=== PATIENT | female | born 1960 | race African-American/Black ===

== ENCOUNTER 2024-04-04 05:50 | Inpatient (IN) | payer OTHER ==
[~2024-04-04] VITALS: Ht 162.6 cm; Wt 90.7 kg
[2024-04-04] VITALS (16 sets, daily range): BP systolic 130–195; BP diastolic 83–183; PULSE 76–96; RESP 5–20; TEMP 36.3918–36.78072; O2SAT 37–98
[~2024-04-04 05:50] MED LIST: ALLO100T MT; AMLODIPINE; ASPI-1160 PO; CARV12.545 PO; CARV3.1242 PO; CETI10CA11 PO; CITA10TA88 MT; CITA20TA75 MT; COR12 PO; ESCI-7 PO; FAMO40TA7 MT; FAMO40TA7 PO; FERR325T6 MT; FURO-151 MT; FURO20TA4 PO; GABA-529 MT; HCTZ; HYDR-4009 MT; HYDR-4009 PO; HYDR200T35 MT; HYDR200T80 MT; HYDR25TA MT; HYDR50TA40 MT; IPRA3AMP9 HHN; LEVO250T74 MT; LORA-249 PO; LOSA100T33 MT; LOSA100T33 PO; NIFE90TA60 MT; NIFE90TA69 PO; ONDA4TAB50 MT; P20 MT; PRED10TA MT; PRED5TAB MT; PROM5SYR MT; PROT40 MT; TRAZ-251 MT
[2024-04-04 07:02] LABS: HEMATOCRIT. 27.2 % (36.0-48.0); HEMOGLOBIN. 8.7 g/dL (12.0-16.0); MEAN CORPUSCULAR HEMOGLOBIN 30.1 pg (28.0-32.0); MEAN PLATELET VOLUME 8.2 fl (7.4-10.4); PLATELET 205 x1000/uL (130-400); WHITE BLOOD COUNT 12.4 x1000/uL (4.5-11.0)
[2024-04-04 07:05] LABS: CHLORIDE 100 mEq/L (98-107); POTASSIUM 5.4 mEq/L (3.5-5.1); SODIUM 133 mEq/L (136-145)
[2024-04-04 07:06] LABS: CALCIUM 9.1 mg/dL (8.7-10.4); CARBON DIOXIDE 23 mEq/L (21-32); DIFFERENTIAL COMMENT 1
[2024-04-04 07:11] LABS: GLUCOSE 99 mg/dL (70-105); UREA NITROGEN BLOOD 59 mg/dL (9-23)
[2024-04-04] MEDS: ACETAMINOPHEN 325MG TABLET PO ONE (07:11)
[2024-04-04] MEDS: METHYLPREDNISOLONE SOD SUCC 125MG/2ML (ACT-O-VIAL) IV STA (07:11)
[2024-04-04 07:21] LABS: TROPONIN I HIGH SENSITIVITY 574 ng/L (3.0-34)
[2024-04-04 07:22] LABS: CREATININE 6.2 mg/dL (0.6-1.0)
[2024-04-04] MEDS: TETANUS, DIPHTHERIA, PERTUSSIS VAC/PF 0.5ML (>10YR OLD) IM ONE (07:23)
[2024-04-04] MEDS: ALBUTEROL (0.083%) 2.5MG/3ML NEB HHN SCH (07:24)
[2024-04-04] MEDS: IPRATROPIUM BROMIDE (0.02%) 0.5MG/2.5ML NEB HHN STA (07:24)
[2024-04-04] MEDS ORDERED: FUROSEMIDE 40MG/4ML VIAL IVP ONE (07:30)
[2024-04-04 08:43] LABS: TROPONIN I HIGH SENSITIVITY 543 ng/L (3.0-34)
[2024-04-04 12:27] LABS: PLATELET ESTIMATE NORMAL
[2024-04-04 12:28] LABS: ANISOCYTOSIS 2+
[2024-04-04] MEDS ORDERED: IPRATROPIUM/ALBUTEROL 0.5-3(2.5)MG/3ML NEB HHN PRN (13:00)
[2024-04-04] MEDS ORDERED: PIPERACILLIN/TAZOBACTAM 3.375 G in DEXTROSE 5% WATER 50 ML IV SCH (13:00)
[2024-04-04] MEDS ORDERED: ENOXAPARIN 40MG/0.4ML SYR SUBCUT SCH (13:00)
[2024-04-04] MEDS ORDERED: NALOXONE HCL 0.4MG/ML VIAL IV PRN (13:15)
[2024-04-04 13:38] LABS: HEPATITIS B SURFACE ANTIGEN NEGATIVE (Negative)
[2024-04-04] MEDS: METHYLPREDNISOLONE SOD SUCC 40MG/ML (ACT-O-VIAL) IV SCH (13:55)
[2024-04-04] MEDS: ENOXAPARIN 30MG/0.3ML SYR SUBCUT SCH (13:56)
[2024-04-04 13:58] LABS: HEPATITIS A AB IGM NEGATIVE (Negative)
[2024-04-04 13:59] LABS: HEPATITIS B CORE AB IGM NEGATIVE (Negative); HEPATITIS C AB NON REACTIVE (Neg) (Negative)
[2024-04-04] MEDS ORDERED: *PATIENT'S OWN MEDICATION STORAGE XX SCH (20:15)
[2024-04-04] MEDS: ATORVASTATIN CALCIUM 40MG TABLET PO SCH (22:08)
[2024-04-04] MEDS: EPOETIN ALFA 4000UNITS/ML VIAL SUBCUT SCH (22:09)
[2024-04-04] MEDS: HYDROCODONE/ACETAMINOPHEN 5/325MG TABLET PO PRN (22:09)
[2024-04-05] VITALS (11 sets, daily range): BP systolic 153–183; BP diastolic 83–128; PULSE 83–88; RESP 14–25; TEMP 36.114–36.72516; O2SAT 20–100
[2024-04-05] MEDS: AZTREONAM 2GM in DEXTROSE 5% WATER 100ML IV SCH (00:28)
[2024-04-05] MEDS: ONDANSETRON HCL 4MG/2ML INJ IV PRN (00:34)
[2024-04-05] MEDS: ASPIRIN 81MG TABLET PO SCH (10:00)
[2024-04-05] MEDS: ISOSORBIDE MONONITRATE 30MG TABLET SR 24HR PO SCH (14:15)
[2024-04-05 16:19] LABS: BG CARBOXYHEMOGLOBIN 0.8 % (0.5-1.5); BG DEOXYHEMOGLOBIN 31.4 % (0.0-5.0); BG FRACTION INSPIRED OXYGEN 21; BG HCO3 ACT 22.9 mmol/L (21.0-28.0); BG METHEMOGLOBIN 0.3 % (0.5-1.5); BG OXYGEN SATURATION 68.3 % (94.0-98.0); BG OXYHEMOGLOBIN 67.5 % (94.0-98.0); BG PCO2 50.3 mmHg (32.0-45.0); BG PH 7.276 (7.350-7.450); BG SAMPLE SITE LEFT RADIAL; BG TOTAL HEMOGLOBIN 10.2 g/dL (12.0-16.0); BG VENT MODE ROOM AIR
[2024-04-05] MEDS: DIATR MEGLU/DIATRIZOATE SOLN 30ML PO SCH (18:28)
[2024-04-05] MEDS: ACETAMINOPHEN 325MG TABLET PO PRN (21:16)
[2024-04-05] MEDS: AMLODIPINE 5MG TABLET PO SCH (21:17)
[2024-04-06] VITALS (19 sets, daily range): BP systolic 143–194; BP diastolic 78–135; PULSE 73–93; RESP 11–22; TEMP 36.16956–37.00296; O2SAT 96–99
[2024-04-06] MEDS ORDERED: DIPHENHYDRAMINE 25MG CAPSULE PO PRN (06:45)
[2024-04-06] MEDS: HYDRALAZINE HCL 25MG TABLET PO SCH (15:11)
[2024-04-06] MEDS: HYDRALAZINE 20MG/ML VIAL IV PRN (19:08)
[2024-04-06] MEDS: HYDROCODONE/ACETAMINOPHEN 10/325MG TABLET PO PRN (22:28)
[2024-04-06] MEDS: EPOETIN ALFA-EPBX 4,000 UNIT/ML VIAL SUBCUT SCH (23:09)
[2024-04-07] VITALS (12 sets, daily range): BP systolic 153–181; BP diastolic 72–99; PULSE 78–92; RESP 13–28; TEMP 36.44736–37.16964; O2SAT 93–100
[2024-04-07] MEDS: ISOSORBIDE MONONITRATE 60MG TABLET SR 24HR PO SCH (08:15)
[2024-04-07 13:03] LABS: HEMATOCRIT 28.1 % (36.0-48.0); HEMOGLOBIN 9.1 g/dL (12.0-16.0); MEAN CORPUSCULAR HEMOGLOBIN 30.9 pg (28.0-32.0); MEAN CORPUSCULAR HGB CONC 32.5 g/dL (31.0-37.0); MEAN CORPUSCULAR VOLUME 95.3 fL (81.0-99.0); PLATELET 201 x1000/uL (130-400); RED BLOOD CELL COUNT 2.95 mill/uL (4.2-5.4); RED CELL DISTRIBUTION WIDTH 19.5 % (11.6-14.6); WHITE BLOOD COUNT 10.6 x1000/uL (4.5-11.0)
[2024-04-07 13:11] LABS: POTASSIUM 5.1 mEq/L (3.5-5.1)
[2024-04-07 13:12] LABS: CALCIUM 8.6 mg/dL (8.7-10.4)
[2024-04-07 13:18] LABS: CREATININE 5.5 mg/dL (0.6-1.0)
[2024-04-07 13:38] LABS: BG BASE EXCESS -4.1 mmol/L (-2.0-3.0); BG CARBOXYHEMOGLOBIN 0.4 % (0.5-1.5); BG DEOXYHEMOGLOBIN 5.5 % (0.0-5.0); BG FRACTION INSPIRED OXYGEN 28; BG HCO3 ACT 22.4 mmol/L (21.0-28.0); BG METHEMOGLOBIN 0.3 % (0.5-1.5); BG OXYGEN SATURATION 94.5 % (94.0-98.0); BG OXYHEMOGLOBIN 93.8 % (94.0-98.0); BG PCO2 47.5 mmHg (32.0-45.0); BG PH 7.291 (7.350-7.450); BG PO2 80.2 mmHg (83.0-108.0); BG SAMPLE SITE RIGHT BRACHIAL; BG TOTAL HEMOGLOBIN 9.4 g/dL (12.0-16.0); BG VENT MODE NASAL CANNULA
[2024-04-08] VITALS (16 sets, daily range): BP systolic 163–197; BP diastolic 78–109; PULSE 84–97; RESP 13–24; TEMP 36.114–37.05852; O2SAT 84–100
[2024-04-08] MEDS ORDERED: HYDRALAZINE 20MG/ML VIAL IV PRN (12:45)
[2024-04-08] MEDS ORDERED: HYDRALAZINE HCL 50MG TABLET PO SCH (14:00)
== END 2024-04-08 14:00 | DRG 140 ==
LOC: ER 05:50 → 5EST 07:31 → MERGE 07:31
PROVIDERS: ADMIT Internal Medicine; ATTEND Internal Medicine
PROC: 5A1D70Z Performance of Urinary Filtration, Intermittent, Less than 6 Hours Per Day (ICD-10-PCS; principal; 2024-04-04)
PROC: 5A1D70Z Performance of Urinary Filtration, Intermittent, Less than 6 Hours Per Day (ICD-10-PCS; 2024-04-06)
PROC: 5A1D70Z Performance of Urinary Filtration, Intermittent, Less than 6 Hours Per Day (ICD-10-PCS; 2024-04-08)
DX: J44.1 Chronic obstructive pulmonary disease with (acute) exacerbation (principal); I50.33 Acute on chronic diastolic (congestive) heart failure; I21.A1 Myocardial infarction type 2; N18.6 End stage renal disease; M32.9 Systemic lupus erythematosus, unspecified; Z99.81 Dependence on supplemental oxygen; E87.1 Hypo-osmolality and hyponatremia; I13.2 Hypertensive heart and chronic kidney disease with heart failure and with stage 5 chronic kidney disease, or end stage renal disease; I16.0 Hypertensive urgency; Z20.822 Contact with and (suspected) exposure to COVID-19; S22.31XA Fracture of one rib, right side, initial encounter for closed fracture; X58.XXXA Exposure to other specified factors, initial encounter; M25.512 Pain in left shoulder; I25.10 Atherosclerotic heart disease of native coronary artery without angina pectoris; E87.5 Hyperkalemia; D64.9 Anemia, unspecified; Z88.1 Allergy status to other antibiotic agents; Z99.2 Dependence on renal dialysis; Z91.148 Patient's other noncompliance with medication regimen for other reason; V49.88XA Car occupant (driver) (passenger) injured in other specified transport accidents, initial encounter; Y93.89 Activity, other specified; Y92.89 Other specified places as the place of occurrence of the external cause; Y99.8 Other external cause status; Z91.158 Patient's noncompliance with renal dialysis for other reason; Z86.19 Personal history of other infectious and parasitic diseases
CPT/HCPCS: 36415; 36600; 71045; 71250; 73030; 74176; 80048; 82375; 82805; 82962; 84484; 85018; 85025; 85027; 86705; 86709; 87340; 87426; 90715; 90935; 93005; 94640; 99291; J0360; J0885; J1650; J2405; J2919; J2920; J3490; J7060; Q9963

== ENCOUNTER 2024-05-24 13:10 | Inpatient (IN) | payer MEDICAID, OTHER ==
[~2024-05-24] VITALS: Ht 165.1 cm; Wt 59.0 kg
[~2024-05-24 13:10] MED LIST changes: -AMLODIPINE; +APIX5TAB PO; +ATOR40TA70 PO; +CALC-37 PO; -CARV3.1242 PO; -CITA10TA88 MT; -CITA20TA75 MT; -COR12 PO; +DICL100G58 TP; +DOCU250C14 PO; -FAMO40TA7 MT; -FURO-151 MT; -GABA-529 MT; -HCTZ; -HYDR-4009 MT; -HYDR-4009 PO; -HYDR200T80 MT; -IPRA3AMP9 HHN; -LEVO250T74 MT; -LORA-249 PO; -LOSA100T33 MT; +MULT-11 PO; +NICO-681 TP; -NIFE90TA69 PO; -ONDA4TAB50 MT; -P20 MT; -PRED10TA MT; -PRED5TAB MT; -PROM5SYR MT; -PROT40 MT
[2024-05-24] MEDS: ASPIRIN 81MG TABLET PO ONE (14:39)
[2024-05-24 16:02] LABS: BASOPHILS % 0.3 % (0.0-2.0); EOSINOPHILS % 0.6 % (0.0-5.0); HEMATOCRIT. 32.8 % (36.0-48.0); HEMOGLOBIN. 10.8 g/dL (12.0-16.0); LYMPHOCYTES % 7.5 % (20.0-50.0); MEAN CORPUSCULAR HEMOGLOBIN 28.7 pg (28.0-32.0); MEAN CORPUSCULAR HGB CONC 32.8 g/dL (31.0-37.0); MEAN CORPUSCULAR VOLUME 87.3 fL (81.0-99.0); MEAN PLATELET VOLUME 8.2 fl (7.4-10.4); MONOCYTES % 4.3 % (2.0-8.0); NEUTROPHILS % 87.3 % (40.0-76.0); PLATELET 184 x1000/uL (130-400); RED BLOOD CELL COUNT 3.76 mill/uL (4.2-5.4); RED CELL DISTRIBUTION WIDTH 20.9 % (11.6-14.6); WHITE BLOOD COUNT 9.1 x1000/uL (4.5-11.0)
[2024-05-24 16:06] LABS: CHLORIDE 104 mEq/L (98-107); POTASSIUM 4.1 mEq/L (3.5-5.1); SODIUM 135 mEq/L (136-145)
[2024-05-24 16:07] LABS: CARBON DIOXIDE 22 mEq/L (21-32)
[2024-05-24 16:08] LABS: CALCIUM 8.7 mg/dL (8.7-10.4)
[2024-05-24 16:12] LABS: CREATININE 4.1 mg/dL (0.6-1.0); GLUCOSE 70 mg/dL (70-105); UREA NITROGEN BLOOD 29 mg/dL (9-23)
[2024-05-24 16:20] LABS: TROPONIN I HIGH SENSITIVITY 68 ng/L (3.0-34)
[2024-05-24 16:23] LABS: INR 1.1; PARTIAL THROMBOPLASTIN TIME 31.6 sec (23.4-31.0); PROTHROMBIN TIME 11.8 sec (9.6-11.0)
[2024-05-24] MEDS: HYDRALAZINE 20MG/ML VIAL IV NR (20:57)
[2024-05-25] VITALS (17 sets, daily range): BP systolic 117–209; BP diastolic 78–119; PULSE 1–102; RESP 16–19; TEMP 36.28068–36.6696; O2SAT 94–100
[2024-05-25] MEDS ORDERED: NON FORMULARY MED XX SCH (00:15)
[2024-05-25] MEDS: LOSARTAN 50 MG TABLET PO SCH (00:35)
[2024-05-25] MEDS: HYDROCODONE/ACETAMINOPHEN 5/325MG TABLET PO PRN (00:37)
[2024-05-25] MEDS: IPRATROPIUM/ALBUTEROL 0.5-3(2.5)MG/3ML NEB HHN PRN (00:49)
[2024-05-25] MEDS ORDERED: HYDRALAZINE 20MG/ML VIAL IV SCH (06:00)
[2024-05-25 06:34] LABS: POTASSIUM 4.2 mEq/L (3.5-5.1)
[2024-05-25 06:35] LABS: CALCIUM 8.8 mg/dL (8.7-10.4)
[2024-05-25 06:39] LABS: CREATININE 4.1 mg/dL (0.6-1.0)
[2024-05-25 06:44] LABS: BASOPHILS % 0.4 % (0.0-2.0); EOSINOPHILS % 0.9 % (0.0-5.0); HEMATOCRIT. 32.8 % (36.0-48.0); HEMOGLOBIN. 10.6 g/dL (12.0-16.0); LYMPHOCYTES % 7.4 % (20.0-50.0); MEAN CORPUSCULAR HEMOGLOBIN 28.2 pg (28.0-32.0); MEAN CORPUSCULAR HGB CONC 32.2 g/dL (31.0-37.0); MEAN CORPUSCULAR VOLUME 87.7 fL (81.0-99.0); MEAN PLATELET VOLUME 8.4 fl (7.4-10.4); MONOCYTES % 5.1 % (2.0-8.0); NEUTROPHILS % 86.2 % (40.0-76.0); PLATELET 178 x1000/uL (130-400); RED BLOOD CELL COUNT 3.75 mill/uL (4.2-5.4); RED CELL DISTRIBUTION WIDTH 21.4 % (11.6-14.6); WHITE BLOOD COUNT 9.9 x1000/uL (4.5-11.0)
[2024-05-25] MEDS: ALLOPURINOL 100 MG TABLET PO SCH (08:20)
[2024-05-25] MEDS: CITALOPRAM HYDROBROMIDE 10MG TABLET PO SCH (08:21)
[2024-05-25] MEDS: FERROUS SULFATE 325MG TABLET PO SCH (08:22)
[2024-05-25] MEDS: FUROSEMIDE 20MG TABLET PO SCH (08:22)
[2024-05-25] MEDS: APIXABAN 5 MG TABLET PO SCH (08:22)
[2024-05-25] MEDS: CARVEDILOL 12.5MG TABLET PO SCH (08:23)
[2024-05-25 12:52] LABS: HEPATITIS B SURFACE ANTIGEN NEGATIVE (Negative)
[2024-05-25 13:13] LABS: HEPATITIS A AB IGM NEGATIVE (Negative); HEPATITIS B CORE AB IGM NEGATIVE (Negative)
[2024-05-25 13:14] LABS: HEPATITIS C AB NON REACTIVE (Neg) (Negative)
[2024-05-25] MEDS ORDERED: IPRA3AMP9 NEB (17:29)
[2024-05-25] MEDS: CLONIDINE 0.1MG TABLET PO PRN (18:49)
[2024-05-25] MEDS: HYDRALAZINE 20MG/ML VIAL IV PRN (19:15)
[2024-05-25] MEDS: ATORVASTATIN CALCIUM 40MG TABLET PO SCH (21:13)
[2024-05-25] MEDS: FAMOTIDINE 20MG TABLET PO SCH (21:14)
[2024-05-25] MEDS: THROAT LOZENGES-BENZOCAINE/MENTH/CETYLPYRD CL LOZENGES MM PRN (22:17)
[2024-05-26] VITALS: BP 125/73; PULSE 79; RESP 17; TEMP 36.55848; O2SAT 99
[2024-05-26 04:00] VITALS: BP 166/85; PULSE 90; RESP 18; TEMP 36.50292; O2SAT 99
[2024-05-26 08:00] VITALS: BP 147/79; PULSE 80; RESP 18; TEMP 36.50292; O2SAT 99
[2024-05-26] MEDS: ONDANSETRON HCL 4MG/2ML INJ IV PRN (12:29)
[2024-05-26 16:00] VITALS: BP 114/70; PULSE 71; RESP 18; TEMP 36.50292; O2SAT 98
[2024-05-26 18:38] LABS: BASOPHILS % 0.4 % (0.0-2.0); EOSINOPHILS % 1.5 % (0.0-5.0); HEMATOCRIT. 30.5 % (36.0-48.0); HEMOGLOBIN. 10.2 g/dL (12.0-16.0); LYMPHOCYTES % 8.1 % (20.0-50.0); MEAN CORPUSCULAR HEMOGLOBIN 29.3 pg (28.0-32.0); MEAN CORPUSCULAR HGB CONC 33.3 g/dL (31.0-37.0); MEAN PLATELET VOLUME 8.3 fl (7.4-10.4); MONOCYTES % 5.9 % (2.0-8.0); NEUTROPHILS % 84.1 % (40.0-76.0); PLATELET 150 x1000/uL (130-400); RED BLOOD CELL COUNT 3.47 mill/uL (4.2-5.4); RED CELL DISTRIBUTION WIDTH 20.6 % (11.6-14.6); WHITE BLOOD COUNT 6.4 x1000/uL (4.5-11.0)
[2024-05-26 18:44] LABS: POTASSIUM 4.9 mEq/L (3.5-5.1)
[2024-05-26 18:45] LABS: CALCIUM 8.5 mg/dL (8.7-10.4)
[2024-05-26 18:50] LABS: CREATININE 4.1 mg/dL (0.6-1.0)
[2024-05-26 20:00] VITALS: BP 131/72; PULSE 74; RESP 19; TEMP 36.44736; O2SAT 100
[2024-05-27] VITALS (9 sets, daily range): BP systolic 100–185; BP diastolic 69–95; PULSE 71–98; RESP 17–19; TEMP 36.114–36.55848; O2SAT 98–100
== END 2024-05-27 16:30 | disposition home or self-care (01) | DRG 194 ==
LOC: ER 13:10 → 8WST 17:05 → EDBEDREQ 17:09
PROVIDERS: ADMIT Internal Medicine; ATTEND Internal Medicine
PROC: 5A1D70Z Performance of Urinary Filtration, Intermittent, Less than 6 Hours Per Day (ICD-10-PCS; principal; 2024-05-25)
PROC: 5A1D70Z Performance of Urinary Filtration, Intermittent, Less than 6 Hours Per Day (ICD-10-PCS; 2024-05-27)
DX: I13.2 Hypertensive heart and chronic kidney disease with heart failure and with stage 5 chronic kidney disease, or end stage renal disease (principal); N18.6 End stage renal disease; M32.9 Systemic lupus erythematosus, unspecified; E87.1 Hypo-osmolality and hyponatremia; Z20.822 Contact with and (suspected) exposure to COVID-19; I50.23 Acute on chronic systolic (congestive) heart failure; J44.1 Chronic obstructive pulmonary disease with (acute) exacerbation; Z91.158 Patient's noncompliance with renal dialysis for other reason; R74.8 Abnormal levels of other serum enzymes; L92.8 Other granulomatous disorders of the skin and subcutaneous tissue; D64.9 Anemia, unspecified; I25.10 Atherosclerotic heart disease of native coronary artery without angina pectoris; Z79.01 Long term (current) use of anticoagulants; Z79.899 Other long term (current) drug therapy; Z86.19 Personal history of other infectious and parasitic diseases; Z88.0 Allergy status to penicillin; Z99.2 Dependence on renal dialysis
CPT/HCPCS: 36415; 71045; 80048; 83880; 84484; 85025; 86705; 86709; 87340; 87426; 90935; 93005; 94640; 99285; J0360; J2405